=== PATIENT | female | born 1975 | race Caucasian/White ===

== ENCOUNTER 2016-11-23 10:00 | Emergency (ER) | payer OTHER ==
[~2016-11-23] VITALS: Wt 61.2 kg
[~2016-11-23 10:00] MED LIST: BIRTH CONTROL1 EAC1 PO; BIRTHCONTROL PILL; DARVOCET N 1001 TAB PO; HYDROCODONE BIT1 T11 PO; MOBIC7.5 MG PO; MOTRIN600 MG PO; MOTRIN800 MG; MOTRIN800 MG PO; NAPROSYN500 MG PO; ROBAXIN750 MG PO; ULTRAM50 MG PO; VICODIN 500 MG-1 TAB PO; ZOFRAN ODT4 MG PO
[2016-11-23] MEDS ORDERED: NAPROSYN500 MG PO (11:11)
[2016-11-23] MEDS ORDERED: CYCLOBENZAPRINE10 MG PO (11:11)
== END 2016-11-23 11:36 | disposition home or self-care (01) ==
LOC: ED 10:00
DX: S40.011A Contusion of right shoulder, initial encounter (principal); S09.90XA Unspecified injury of head, initial encounter; V80.010A Animal-rider injured by fall from or being thrown from horse in noncollision accident, initial encounter; Y93.52 Activity, horseback riding; Y92.828 Other wilderness area as the place of occurrence of the external cause; Y99.9 Unspecified external cause status

== ENCOUNTER 2021-12-24 09:49 | Emergency (ER) | payer OTHER ==
[~2021-12-24 09:49] MED LIST changes: +CYCLOBENZAPRINE10 MG PO
[2021-12-24] MEDS ORDERED: CEPHALEXIN500 M1 PO (12:04)
[2021-12-24] MEDS ORDERED: TYLENOL325 M1 PO (12:05)
[2021-12-24] MEDS ORDERED: NAPROXEN250 MG PO (12:05)
[2021-12-25] MEDS ORDERED: CYCLOBENZAPRINE10 MG PO (13:49)
[2021-12-25] MEDS ORDERED: VOLTAREN ARTHRI20 GM T (13:53)
== END 2021-12-24 11:25 | disposition home or self-care (01) ==
LOC: ED 09:49
DX: S51.012A Laceration without foreign body of left elbow, initial encounter (principal); S49.92XA Unspecified injury of left shoulder and upper arm, initial encounter; Z79.899 Other long term (current) drug therapy; V80.010A Animal-rider injured by fall from or being thrown from horse in noncollision accident, initial encounter; Y93.89 Activity, other specified; Y92.89 Other specified places as the place of occurrence of the external cause; Y99.8 Other external cause status

== ENCOUNTER 2022-10-14 07:56 | Emergency (ER) | payer OTHER ==
[~2022-10-14] VITALS: Ht 162.5 cm; Wt 68.0 kg
[~2022-10-14 07:56] MED LIST changes: +CEPHALEXIN500 M1 PO; +NAPROXEN250 MG PO; +TYLENOL325 M1 PO; +VOLTAREN ARTHRI20 GM T
[2022-10-14] MEDS ORDERED: CRESTOR5 M1 PO (08:06)
[2022-10-14] MEDS ORDERED: AMOX-CLAV 875-1 EACH PO (09:11)
[2022-10-14] MEDS ORDERED: CYCLOBENZAPRINE10 MG PO (09:11)
== END 2022-10-14 09:30 | disposition home or self-care (01) ==
LOC: ED 07:56
DX: S51.012A Laceration without foreign body of left elbow, initial encounter (principal); M25.512 Pain in left shoulder; M19.90 Unspecified osteoarthritis, unspecified site; Z98.890 Other specified postprocedural states; V80.010A Animal-rider injured by fall from or being thrown from horse in noncollision accident, initial encounter; Y93.89 Activity, other specified; Y92.89 Other specified places as the place of occurrence of the external cause; Y99.8 Other external cause status